=== PATIENT | female | born 1965 | race Caucasian/White ===

== ENCOUNTER 2022-12-18 11:42 | Emergency (ER) | payer BC, SELFPAY ==
[2022-12-18] VITALS (7 sets, daily range): BP systolic 120–141; BP diastolic 64–84; PULSE 70–81; RESP 16–18; TEMP 37.2; O2SAT 100
[2022-12-18 12:24] LABS: Appearance Urine Clear (Clear); Bilirubin Urine 1+ (Negative); Blood Urine 1+ (Negative); Color Urine Yellow (Yellow); Glucose Urine UA Negative (Negative); Ketones Urine 2+ mg/dL (Negative); Leukocyte Esterase Ur Trace LEU/UL (Negative); Nitrate Urine Negative (Negative); Protein Urine 2+ mg/dL (Negative); Specific Grav Ur >= 1.030 (1.001-1.035); Urobilinogen Urine 0.2 mg/dL (<2.0)
[2022-12-18 12:30] LABS: Bacteria Urine Trace /hpf; Mucus Urine Heavy /lpf; Squamous Epithelial Cell Urine Few /hpf (Few); WBC Urine 16-20 /hpf
[2022-12-18 12:32] LABS: Add Urine Microscopic? YES
--- NOTE | 2022-12-18 14:23 | ED.GENADULT ---
HPI - General Adult General Chief complaint: Nausea/Vomiting/Diarrhea Stated complaint: N/V Time Seen by Provider: 12/18/22 14:09 Source: RN notes reviewed History of Present Illness HPI narrative: Patient presents emergency department from home for nausea vomiting diarrhea. Patient states the symptoms began yesterday morning. States she is had numerous episodes of nausea and vomiting as well as numerous episodes of diarrhea. She states she feels nauseous at this time she denies any fevers or chills chest pain shortness of breath. Denies any abdominal pain. States she did eat [place] food with seafood and [place] in [place] the night before. Related Data Allergies Allergy/AdvReac Type Severity Reaction Status Date / Time No Known Allergies Allergy Verified 12/18/22 14:08 Review of Systems Review of Systems: Gen.: Denies fevers or chills ENT: Denies congestion Respiratory: Denies shortness of breath or cough CV: Denies chest pain or palpitations GI: See HPI denies burning, urgency, frequency or hematuria Musculoskeletal: Denies back pain or muscle pain Neuro: Denies numbness, tingling, weakness or focal weakness Skin: Denies rash Except as documented, all other systems reviewed and negative [facility] Past Medical History Medical History (Updated 12/18/22 @ 17:08 by Tobi Yang DO) Patient denies significant medical history Social History Social History (Updated 12/18/22 @ 14:24 by Tobi Yang DO) Smoking status: Never smoker Exam Narrative: APPEARANCE: No acute distress, nontoxic, resting in bed EYES: EOMI HEENT: Normocephalic, atraumatic, OMM RESPIRATORY: No respiratory distress Clear to auscultation bilaterally with no rhonchi wheezing or rales. CARDIOVASCULAR: Regular rate and rhythm without murmurs rubs or gallops. ABDOMINAL: Soft, nontender, nondistended, no rebound or guarding MUSCULOSKELETAl: Moves all extremities. No clubbing, cyanosis or edema. NEURO: Awake and alert. Following commands, speech normal, no focal deficits SKIN:: Warm, dry. No rashes lesions or abrasions PSYCHIATRIC: Normal affect/mood, Course Course Emergency Course: Patient feeling much better at this time able to drink in the ED with no emesis. Abdomen remains soft and nontender Discussed with patient results of workup and diagnosis. Discussed need for follow-up with primary care, proper use of medication, and reasons to return to the emergency department. Patient understands and agrees to current treatment plan Vital Signs Vital signs: Vital Signs Temperature 99 F 12/18/22 12:03 Pulse Rate 81 12/18/22 12:03 Respiratory Rate 16 12/18/22 12:03 Blood Pressure 130/64 12/18/22 12:03 Pulse Oximetry 100 12/18/22 12:03 Oxygen Delivery Room Air 12/18/22 12:03 Temperature 99 F 12/18/22 12:03 Pulse Rate 75 12/18/22 15:13 Respiratory Rate 18 12/18/22 14:46 Blood Pressure 134/71 12/18/22 15:13 Pulse Oximetry 100 12/18/22 14:46 Oxygen Delivery Room Air 12/18/22 12:03 Medical Decision Making MDM Narrative Medical decision making narrative: Patient presents for nausea vomiting diarrhea for the past 24 hours. Denies any abdominal pain denies any fevers on exam the abdomen is soft nontender white count is within normal limits electrolytes are within normal limits as well the patient was given fluids in the ED and was able to eat and drink will discharge at this time Differential Diagnosis Differential Diagnosis: Cholecystitis gastritis on diverticulitis Vital Signs Vital Signs: Vital Signs Temperature 99 F 12/18/22 12:03 Pulse Rate 81 12/18/22 12:03 Respiratory Rate 16 12/18/22 12:03 Blood Pressure 130/64 12/18/22 12:03 Pulse Oximetry 100 12/18/22 12:03 Oxygen Delivery Room Air 12/18/22 12:03 Temperature 99 F 12/18/22 12:03 Pulse Rate 75 12/18/22 15:13 Respiratory Rate 18 12/18/22 14:46 Blood Pressure 134/71 12/18/22 15:13 Pulse Oximetr
[2022-12-18] MEDS: SODIUM CHLORIDE 0.9% IV 1,000 ML 999 ML IV CONT (14:29)
[2022-12-18] MEDS: FAMOTIDINE 20 MG/2 ML VIAL IV PUSH (14:30)
[2022-12-18] MEDS: ONDANSETRON INJ 4 MG/2 ML VIAL IV PUSH (14:30)
[2022-12-18 14:31] LABS: Basophils Percent Auto 0.3 % (0.2-1.2); Eosinophils Percent Auto 0.3 % (0-4.4); Hematocrit 39.9 % (37.0-47.0); Hemoglobin 13.5 g/dL (12.0-15.0); Immature Granulocyte Absolute 0.03 K/mm3 (0.00-0.031); Immature Granulocyte Percent A 0.4 % (0-0.5); Lymphocytes Absolute Auto 1.64 K/mm3 (0.9-3.2); Mean Corpuscular HGB Conc 33.8 g/dl (32-36); Mean Corpuscular Hemoglobin 32.1 pg (26-34); Mean Platelet Volume 9.5 fl (7.4-10.4); Monocytes Absolute Auto 0.4 K/mm3 (0.1-0.6); Monocytes Percent Auto 4.9 % (2.6-8.5); Neutrophils Absolute Auto 5.7 K/mm3 (1.3-6.7); Neutrophils Percent Auto 73.1 % (45.5-73.1); Platelet Count Result 213 k/mm3 (150-375); White Blood Count 7.8 K/mm3 (4.5-10.0)
[2022-12-18 14:47] LABS: Alanine Aminotransferase 22 U/L (6-35); Alkaline Phosphatase 69 U/L (38-126); Anion Gap 6 mmol/L (8-16); Aspartate Amino Transferase 30 U/L (14-36); Bilirubin,Total 0.6 mg/dL (0.2-1.3); Blood Urea Nitrogen 24 mg/dL (7-17); Calcium 9.5 mg/dL (8.4-10.2); Carbon Dioxide 30 mmol/L (22-30); Chloride 101 mmol/L (98-107); Estimated CRCL calculation 81 ml/min; Estimated Glomerular Filt Rate > 60; Glucose 109 mg/dL (65-110); Lipase 72 U/L (23-300); Potassium 3.9 mmol/L (3.4-5.0); Sodium 137 mmol/L (137-145)
--- NOTE | 2022-12-18 17:21 | PC.NURSE ---
Pt tolerated PO challenge, said is feeling so much better .
== END 2022-12-18 17:23 | disposition home or self-care (01) ==
PROVIDERS: Emergency Provider Emergency Medicine; PCP Internal Medicine
DX: N39.0 Urinary tract infection, site not specified (principal); R11.2 Nausea with vomiting, unspecified; R19.7 Diarrhea, unspecified
CPT/HCPCS: 36415; 80053; 81001; 83690; 85025; 87086; 87088; 96361; 96374; 96375; 99284; J2405; J7030